=== PATIENT | female | born 1985 | race Caucasian/White ===

== ENCOUNTER 2018-02-01 12:27 | Outpatient (CLI) | payer BC, MEDICAID | END 2018-02-01 15:00 | disposition home or self-care (01) | LOC: OBT 12:27 → L-D 12:28 → OBT 15:00 | DX: O36.8330 Maternal care for abnormalities of the fetal heart rate or rhythm, third trimester, not applicable or unspecified (principal); Z3A.30 30 weeks gestation of pregnancy | CPT/HCPCS: 76818 ==

== ENCOUNTER 2018-02-03 13:13 | Outpatient (CLI) | payer BC | END 2018-02-03 16:00 | disposition home or self-care (01) | LOC: OBT 13:13 → L-D 13:16 → OBT 16:00 | DX: O36.8330 Maternal care for abnormalities of the fetal heart rate or rhythm, third trimester, not applicable or unspecified (principal); Z3A.31 31 weeks gestation of pregnancy | CPT/HCPCS: 76818 ==

== ENCOUNTER 2018-02-06 09:32 | Outpatient (CLI) | payer BC | END 2018-02-06 11:21 | disposition home or self-care (01) | LOC: OBT 09:32 → L-D 09:35 → OBT 11:21 | DX: O76 Abnormality in fetal heart rate and rhythm complicating labor and delivery (principal); O62.9 Abnormality of forces of labor, unspecified; Z3A.31 31 weeks gestation of pregnancy | CPT/HCPCS: 76818 ==

== ENCOUNTER 2018-02-09 14:00 | Outpatient (CLI) | payer BC | END 2018-02-09 17:35 | disposition home or self-care (01) | LOC: OBT 14:00 → L-D 14:00 → OBT 17:35 | DX: O99.413 Diseases of the circulatory system complicating pregnancy, third trimester (principal); Z3A.32 32 weeks gestation of pregnancy | CPT/HCPCS: 76818 ==

== ENCOUNTER 2018-02-16 12:59 | Outpatient (CLI) | payer BC | END 2018-02-16 16:00 | disposition home or self-care (01) | LOC: OBT 12:59 → L-D 13:00 → OBT 16:00 | DX: O76 Abnormality in fetal heart rate and rhythm complicating labor and delivery (principal); Z3A.32 32 weeks gestation of pregnancy | CPT/HCPCS: 76818 ==

== ENCOUNTER 2018-03-23 13:31 | Inpatient (IN) | payer BC ==
[2018-03-23] MEDS: LACTATED RINGER'S 1,000 ML IV (14:55)
[2018-03-23] MEDS ORDERED: MISOPROSTOL 200 MCG TAB PR ×2 (15:00→18:00)
[2018-03-23] MEDS ORDERED: CARBOPROST 250 MCG INJ IM ×2 (15:00→18:00)
[2018-03-23] MEDS ORDERED: BUTORPHANOL 2 MG INJ IV (15:00)
[2018-03-23] MEDS ORDERED: OXYTOCIN 30 UNITS/LR 500 ML IV ×2 (15:00→18:00)
[2018-03-23] MEDS ORDERED: BUTORPHANOL 1 MG INJ IV (15:00)
[2018-03-23] MEDS ORDERED: METHYLERGONOVINE 0.2 MG INJ IM ×2 (15:00→18:00)
[2018-03-23 15:45] LABS: ADD MAN DIFF? NO
[2018-03-23 15:47] LABS: WHITE BLOOD COUNT 14.2 10^3/ul (4.8-10.8)
[2018-03-23 15:47] LABS: BASOPHILS % 0.1 % (0.0-2.0); EOSINOPHILS % 0.3 % (0.0-7.0); HEMATOCRIT 35.8 % (37.0-47.0); HEMOGLOBIN 11.9 g/dl (12.0-16.0); LYMPHOCYTES # 1.7 10^3/ul (0.8-2.9); MEAN CORPUSCULAR HGB CONC 33.2 g/dl (32.0-37.0); MEAN CORPUSCULAR VOLUME 90.2 fl (82.0-101.0); MEAN PLATELET VOLUME 10.9 fl (7.4-10.4); MONOCYTE # 0.4 10^3/ul (0.3-0.9); NEUTROPHILS % 84.1 % (39.0-77.0); PLATELET COUNT 279 10^3/UL (140-415); RED BLOOD COUNT 3.97 10^6/ul (4.20-5.40); RED CELL DISTRIBUTION WIDTH 13.8 % (11.5-14.5)
[2018-03-23 16:06] LABS: INR 0.87; PROTIME 11.9 Sec (11.9-14.9); PT RATIO 0.9
[2018-03-23 16:07] LABS: PARTIAL THROMBOPLASTIN TIME 28.8 Sec (25.0-35.0)
[2018-03-23] MEDS: OXYTOCIN 30 UNITS/LR 500 ML IV ×3 (16:24→22:13)
[2018-03-23 16:34] LABS: HEPATITIS B SURFACE ANTIGEN NEGATIVE (NEGATIVE)
[2018-03-23] MEDS: IBUPROFEN 600 MG TAB PO ×2 (17:41→23:48)
[2018-03-23] MEDS: LIDOCAINE 1% (MPF) 30 ML INJ INJ (17:59)
[2018-03-23] MEDS ORDERED: ONDANSETRON 4 MG INJ IV (18:00)
[2018-03-23] MEDS ORDERED: ACETAMINOPHEN 325 MG TAB PO ×2 (18:00)
[2018-03-23] MEDS ORDERED: MAGNESIUM HYDROXIDE 30ML CUP PO (18:00)
[2018-03-23] MEDS ORDERED: DIBUCAINE 1% 30 GM OINT PR (18:00)
[2018-03-23] MEDS ORDERED: BENZOCAINE 20% 56 ML SPRAY TOP (18:00)
[2018-03-23] MEDS: LACTATED RINGER'S 1,000 ML IV* (21:41)
[2018-03-23] MEDS: LANOLIN 7 GM TUBE TOP (23:48)
[2018-03-23] MEDS: WITCH HAZEL/GLYCERIN PAD PR (23:48)
[2018-03-23] MEDS: SENNA/DOCUSATE NA (8.6MG/50MG) TAB PO (23:48)
[2018-03-24] MEDS: LACTATED RINGER'S 1,000 ML IV* ×3 (01:47→17:47)
[2018-03-24] MEDS: IBUPROFEN 600 MG TAB PO ×4 (05:17→23:53)
[2018-03-24 07:10] LABS: ADD MAN DIFF? NO
[2018-03-24 07:16] LABS: WHITE BLOOD COUNT 14.1 10^3/ul (4.8-10.8)
[2018-03-24 07:16] LABS: BASOPHILS % 0.2 % (0.0-2.0); EOSINOPHILS # 0.1 10^3/ul (0.0-0.5); EOSINOPHILS % 0.4 % (0.0-7.0); HEMATOCRIT 32.2 % (37.0-47.0); HEMOGLOBIN 10.7 g/dl (12.0-16.0); LYMPHOCYTES # 2.1 10^3/ul (0.8-2.9); LYMPHOCYTES % 14.8 % (15.0-51.0); MEAN CORPUSCULAR HEMOGLOBIN 30.4 pg (29.0-33.0); MEAN CORPUSCULAR HGB CONC 33.2 g/dl (32.0-37.0); MEAN CORPUSCULAR VOLUME 91.5 fl (82.0-101.0); MEAN PLATELET VOLUME 10.9 fl (7.4-10.4); MONOCYTE # 0.6 10^3/ul (0.3-0.9); MONOCYTES % 4.3 % (0.0-11.0); NEUTROPHIL # 11.2 10^3/ul (1.6-7.5); NEUTROPHILS % 79.7 % (39.0-77.0); PLATELET COUNT 221 10^3/UL (140-415); RED BLOOD COUNT 3.52 10^6/ul (4.20-5.40)
[2018-03-24 15:03] LABS: RAPID PLASMA REAGIN NONREACTIVE (NR)
[2018-03-24] MEDS: SENNA/DOCUSATE NA (8.6MG/50MG) TAB PO (21:05)
[2018-03-25] MEDS: LACTATED RINGER'S 1,000 ML IV* ×2 (01:47→09:47)
[2018-03-25] MEDS: IBUPROFEN 600 MG TAB PO (11:17)
== END 2018-03-25 17:28 | disposition home or self-care (01) | DRG 775 ==
LOC: OBT 13:31 → L-D 13:36 → OBT 15:00 → L-D 15:00 → PP1 18:06
PROVIDERS: Obstetrics & Gynecology
PROC: 10E0XZZ Delivery of Products of Conception, External Approach (ICD-10-PCS; principal; 2018-03-23)
PROC: 0KQM0ZZ Repair Perineum Muscle, Open Approach (ICD-10-PCS; 2018-03-23)
PROC: 3E033VJ Introduction of Other Hormone into Peripheral Vein, Percutaneous Approach (ICD-10-PCS; 2018-03-23)
DX: O70.1 Second degree perineal laceration during delivery (principal); Z37.0 Single live birth; Z3A.38 38 weeks gestation of pregnancy
CPT/HCPCS: 85025; 85610; 85730; 86592; 86850; 86900; 86901; 87340